=== PATIENT | female | born 1980 | race Caucasian/White ===

== ENCOUNTER → 2023-12-10 11:27 | Outpatient (REF) | payer BC, SELFPAY | LOC: WDC 11:27 | PROVIDERS: ATTENDING PHYSICIAN Family Medicine | DX: Z12.31 Encounter for screening mammogram for malignant neoplasm of breast (principal) | CPT/HCPCS: 77063; 77067 ==

== ENCOUNTER → 2024-02-06 14:17 | Outpatient (REF) | payer BC, SELFPAY | LOC: RAD 14:17 | PROVIDERS: ATTENDING PHYSICIAN Family Medicine | DX: R05.9 Cough, unspecified (principal); R06.02 Shortness of breath | CPT/HCPCS: 71046 ==